=== PATIENT | male | born 1955 | race Caucasian/White ===

== ENCOUNTER 2023-06-25 07:44 | Outpatient (CLI) | payer MEDICARE, OTHER, SELFPAY ==
--- NOTE | ~2023-06-25 | US_ITS ---
EXAMINATION: US carotid duplex BI DATE: 06/25/2023 08:26 INDICATION: Bilateral carotid bruit TECHNIQUE: Grayscale, color Doppler, and pulsed Doppler images of the cervical carotid arteries were obtained. The degree of vessel stenosis is placed in one of the following categories: normal, <50%, 5 0-69%, >=70% but less than near-occlusion, near-occlusion, or total occlusion. Note that percent sten osis relative to normal distal artery lumen diameter is indirectly measured from velocity measurement s as described by Sandeep, et al. Radiology 2003; 229:340-346. COMPARISON: None. FINDINGS: RIGHT: The right common carotid artery (CCA) peak systolic velocity (PSV) is 74 cm/s. The right internal car otid artery (ICA) PSV is 57 cm/s. The right ICA end-diastolic velocity (EDV) is 22 cm/s. The right IC A/CCA PSV ratio is 0.8. Grayscale and color Doppler images yield an estimate of <50% diameter reducti on from plaque in the ICA. The external carotid artery (ECA) PSV is 52 cm/s. There is antegrade flow in the right vertebral artery. LEFT: The left CCA PSV is 68 cm/s. The left ICA PSV is 111 cm/s. The left ICA EDV is 40 cm/s. The left ICA/ CCA PSV ratio is 1.6. Grayscale and color Doppler images yield an estimate of <50% diameter reduction from plaque in the ICA. The ICA is tortuous distal to the bulb. The ECA PSV is 45 cm/s. There is ant egrade flow in the left vertebral artery. IMPRESSION: 1. <50% stenosis in the right internal carotid artery. 2. <50% stenosis in the left internal carotid artery. Reviewed, dictated and finalized at location A.
--- NOTE | 2023-06-25 07:58 | ECHO_ITS ---
Patient Info Name: Ozzie De La O Age: 67 years : 1955 Gender: Male Ht: 67 in Wt: 215 lbs BSA: 2.18 m2 HR: 65 bpm BP: 145 / 89 mmHg Heart Rhythm: Sinus Rhythm Technical Quality: Fair Exam Date: 06/25/2023 8:36 AM Exam Location: [facility] Patient Status: Outpatient Admit Date: 06/25/2023 Staff Ordering Physician: Tamara Rai MD Surveyor'S Assistant: Tomasa Madsen RDCS Attending Provider: Tamara Rai MD Referring Physician: Fredi AHMADI; Exam Type: CA echo doppler color flow Study Info Indications R01.1 - Cardiac murmur, unspecified Complete two-dimensional, color flow and Doppler transthoracic echocardiogram is performed. Summary 1. Complete two-dimensional, color flow and Doppler transthoracic echocardiogram is performed. 2. Left ventricular chamber dimension is normal. 3. Left ventricular systolic function is normal, estimated at 60-65%. 4. There is mild concentric increased left ventricular wall thickness. 5. The left ventricular diastolic function is grade I diastolic dysfunction. 6. E/e' 12 is mildly elevated. 7. There is mild aortic valve sclerosis. 8. There is mild aortic valve regurgitation. 9. There is mild mitral valve regurgitation. 10. There is trace tricuspid valve regurgitation. 11. No pulmonary hypertension, estimated pulmonary arterial systolic pressure is 23 mmHg. 12. There is trace pulmonic regurgitation. Left Ventricle E/e' 12 is mildly elevated. Left ventricular chamber dimension is normal. Left ventricular systolic function is normal, estimated at 60-65%. There is mild concentric increased left ventricular wall thickness. The left ventricular diastolic function is grade I diastolic dysfunction. Right Ventricle Right ventricular systolic function is normal and with normal TAPSE 3.3 cm. Right ventricular chamber dimension is normal. Left Atria Left atrial chamber dimension is normal. Right Atria Right atrial chamber dimension is normal. Aortic Valve The aortic valve is trileaflet. There is mild aortic valve sclerosis. There is no aortic valve stenosis. There is mild aortic valve regurgitation. Pulmonic Valve There is trace pulmonic regurgitation. Mitral Valve There is no mitral valve stenosis. There is mild mitral valve regurgitation. Tricuspid Valve There is trace tricuspid valve regurgitation. No pulmonary hypertension, estimated pulmonary arterial systolic pressure is 23 mmHg. Pericardium/Pleural There is no pericardial effusion. Inferior Vena Cava Normal inferior vena cava with >50% collapse upon inspiration consistent with normal right atrial pressure, 5 mmHg. Aorta The aortic root size at the sinus of Valsalva is normal. Left Ventricular Outflow Tract Name Value Normal LVOT 2D LVOT Diameter 2.0 cm LVOT Doppler LVOT Peak Velocity 102 cm/s LVOT Peak Gradient 4 mmHg LVOT Mean Gradient 3 mmHg LVOT VTI 24 cm LVOT VTI/AV VTI Ratio 0.6 LVOT Stroke Volume 78 ml Pulmonic Valve Name
== END 2023-06-25 07:45 | disposition home or self-care (01) ==
LOC: CHSIMG 07:46
PROVIDERS: PCP Internal Medicine; Visit Provider Internal Medicine
DX: R10.11 Right upper quadrant pain (principal); I65.23 Occlusion and stenosis of bilateral carotid arteries; I08.3 Combined rheumatic disorders of mitral, aortic and tricuspid valves
CPT/HCPCS: 93306; 93880

== ENCOUNTER 2025-01-06 12:18 | Outpatient (CLI) | payer MEDICARE, OTHER, SELFPAY ==
--- NOTE | ~2025-01-06 | US_ITS ---
EXAMINATION: US arterial ankle brachial ind DATE: 01/06/2025 12:48 INDICATION: Peripheral arterial disease. TECHNIQUE: Segmental pressures and plethysmographic and Doppler waveforms of the brachial and lower e xtremity arteries were obtained. COMPARISON: None. FINDINGS: Right and left brachial artery pressures of 145 mm Hg and 137 mm Hg, respectively, are concordant (no rmal difference <= 30 mmHg). The right ankle-brachial index (SHAHID) is 1.34 (normal >= 0.9-1.0). The right great toe-brachial index (TBI) is 0.86 (normal >= 0.65). Arterial Doppler waveforms are triphasic at the ankle. The left SHAHID is 1.24. The left TBI is 0.86. Arterial Doppler waveforms are triphasic at the ankle. IMPRESSION: 1. No significant arterial occlusive disease. Reviewed, dictated and finalized at location B.
--- OUTSIDE RECORDS SUMMARY | 2025-01-06 13:40 | XMS_ITS | Clinical Summary ---
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 Gender Identity Not on file Sexual Orientation Not on file Plan of Treatment Health Maintenance Due Date Last Done Comments Colorectal Cancer Screening Colonoscopy (10 Years) 1955 Hepatitis C 1971 DTaP, Tdap and Td Vaccines ( 1 - Tdap) 1972 Zoster Vaccines (1 of 2) 2003 Pneumococcal Vaccine: 65+ Ye ars (1 of 1 - PCV) 2018 COVID-19 Vaccine ( - 2023-2 5 season) 2024 Influenza Adult (#1) 2024 RSV Immunization or 60+ Years (1 - 1-dose 75+ series) 2028 Meningococcal B Vaccine Aged Out No l onger eligible based on patient's age to complete this topic Meningococcal Vaccine Aged Out No chaka yas eligible based on patient's age to complete this topic RSV Immunizations Under 20 Months Aged Out No longer eligible based on patient's age to complete this topic
== END 2025-01-06 12:19 | disposition home or self-care (01) ==
PROVIDERS: PCP Internal Medicine; Visit Provider Internal Medicine
DX: I73.9 Peripheral vascular disease, unspecified (principal)
CPT/HCPCS: 93922

== ENCOUNTER 2025-06-25 14:31 | Outpatient (CLI) | payer MEDICARE, OTHER, SELFPAY ==
--- NOTE | ~2025-06-25 | XR_ITS ---
XR lumbar spine 2-3V 06/25/2025 14:58 Indication: Back pain Procedure: 3 views lumbar spine Comparison: 09/21/2015 Findings: There has been progression of disc height loss at all lumbar levels. Vertebral body heights are maintained without acute fracture. There is multilevel facet hypertrophy. Prominent bridging osteophytes ventrally at L3-4 and L4-5. No evidence for spondylolisthesis. Sacral foramen are symmetric. Impression: 1: Progression of severe lumbar spondylosis. Reviewed, dictated and finalized at location O. Impression: 1: Progression of severe lumbar spondylosis.
--- OUTSIDE RECORDS SUMMARY | 2025-06-25 14:36 | XMS_ITS | Clinical Summary ---
Author Organization 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
== END 2025-06-25 14:32 | disposition home or self-care (01) ==
LOC: CHSIMG 14:34
PROVIDERS: PCP Internal Medicine; Visit Provider Internal Medicine
DX: M54.50 Low back pain, unspecified (principal); M43.06 Spondylolysis, lumbar region
CPT/HCPCS: 72100

== ENCOUNTER 2025-07-25 11:08 | Outpatient (CLI) | payer MEDICARE, OTHER, SELFPAY ==
--- NOTE | ~2025-07-25 | MR_ITS ---
EXAMINATION: MR lumbar spine wo con DATE: 07/25/2025 11:51 INDICATION: Chronic low back pain. Lumbar canal stenosis. TECHNIQUE: Magnetic resonance imaging (MRI) of the lumbar spine was performed without intravenous contrast. Sequences included sagittal T2-weighted FSE, sagittal T2-weighted FS FSE, sagittal T1-weighted FSE, and axial T2-weighted FSE. COMPARISON: Lumbar spine radiographs 06/25/2025 FINDINGS: There is 5 mm retrolisthesis of L1 on L2 and 3 mm retrolisthesis of L3 on L4 and L4-L5. There is mild chronic anterior wedging of T12 vertebral body. There are Schmorl's nodes at multiple levels. There is severely decreased disc height at L1-L2, L3-L4, L4-L5, and L5-S1. The distal spinal cord signal intensity is normal. The conus medullaris is at L1-L2. The following disc levels are specifically discussed: L1-L2: The disc is bulging and has an annular fissure. There is mild bilateral facet joint osteoarthritis. There is mild bilateral neural foraminal stenosis. There is mild central canal stenosis. L2-L3: The disc is bulging. There is severe bilateral facet joint osteoarthritis. There is mild bilateral neural foraminal stenosis. There is no central canal stenosis. L3-L4: The disc is bulging with superimposed central extrusion. There is moderate bilateral facet joint osteoarthritis. There is mild bilateral neural foraminal stenosis. There is mild central canal stenosis. L4-L5: The disc is bulging and has an annular fissure. There is moderate bilateral facet joint osteoarthritis. There is moderate right and mild left neural foraminal stenosis. There is mild central canal stenosis. L5-S1: The disc is bulging and has an annular fissure. There is severe bilateral facet joint osteoarthritis. There is mild right and moderate left neural foraminal stenosis. There is mild central canal stenosis. IMPRESSION: 1. Severe lumbar spondylosis. Reviewed, dictated and finalized at location E.
== END 2025-07-25 11:09 | disposition home or self-care (01) ==
LOC: CHSIMG 11:13
PROVIDERS: PCP Internal Medicine; Visit Provider Internal Medicine
DX: M54.50 Low back pain, unspecified (principal); M43.06 Spondylolysis, lumbar region
CPT/HCPCS: 72148

== ENCOUNTER 2025-09-02 13:51 | Outpatient (RCR) | payer MEDICARE, SELFPAY ==
--- NOTE | 2025-09-02 14:52 | OPREHPOC ---
Outpatient Therapy Plan of Care This is a Multidisciplinary Plan of Care that may contain components documented by all disciplines (PT, OT, and ST.) PT Problem 1 PT Problem #1 Knowledge Deficit PT Goal 1 Goal / Goal Update Independent and compliant with HEP. Target Visit 2 PT Problem 2 PT Problem #2 Impaired Strength PT Goal 1 Goal / Goal Update Pt to improve hip and knee strength to 5/5 without pain. Pt to improve lower abdominal strength to 3+/5 without pain. Target Visit 12 PT Problem 3 PT Problem #3 Impaired Range of Motion PT Goal 1 Goal / Goal Update Pt to achieve full active lumbar flexion and lateral flexion without pain/stiffness. Target Visit 12 PT Problem 4 PT Problem #4 Impaired Functional Mobility PT Goal 1 Goal / Goal Update Pt to report 20% reduction in perceived disability on Oswestry. Pt to report being able to work in his garden and perform household tasks with reduced feelings of low back stiffness. Target Visit 12 PT Problem 5 PT Problem #5 Impaired Flexibility PT Goal 1 Goal / Goal Update Pt to achieve mild tightness of bilat piriformis. Pt to reach 30 deg bilat hamstring length. Target Visit 12
--- NOTE | 2025-09-02 14:52 | PTOPEVAL1 ---
Assessment and note entered by Marii Quinn, PT Evaluation Information Assessment Status Evaluation ICD-10 Condition Codes (PT) Radiculopathy, lumbar region M54.16 Other ICD-10 Condition Codes ( M47.816, M54.59 PT) Onset 09/01/23 Subjective Information Pt reports his back started hurting a couple years ago and he went to the chiropractor a lot, which helped for a short time but that it didn't help much overall. He states he has not been back since the summer. He has been to pain management and they recommended he try PT and that injections are an option of therapy doesn't work. He reports he has a constant ache in his lower back but that his main concern is the stiffness he feels. He reports he likes to work in his garden and has trouble bending forward. He reports he does have more back pain when he's standing vs. sitting. He has tried ibuprofen but overall tries to avoid any pain medication. He reports his pain is primarily localized to his lower but that it can occasionally go down his legs if he's doing heavy lifting. Lumbar spine MRI from June 2025 shows severe spondylosis consisting of retrolisthesis, disc bulging with extrusions, forminal and central canal stenosis. Reported Pain Level Pain Score 3: Self Report Assessment PT Clinical Summary Mr. De La O is a 70 yo male presenting to skilled PT evaluation for lumbar radiculopathy and spondylosis. He demonstrates deficits in hip and abdominal strength as well as lumbar AROM. His deficits make it difficult for him to perform functional and recreational tasks such as working in his garden. Skilled PT intervention is indicated to reduce pain, improve mobility/ flexibility and strength to return to normal activities with more ease. Plan of Care Interventions Electrical Stimulation,Gait Training,Hot Pack/Cold Pack,Manual Therapy,Mechanical Traction,Neuro Re- education,Patient/Caregiver Education,Therapeutic Activities,Therapeutic Exercise,Self-Care/Home Management PT Services Indicated Yes Treatment Frequency and 2x/week for 12 visits Duration These treatments will address the objective and functional deficits as defined above. The patient will be advanced safely and appropriately in order for the patient to progress towards his/her prior level of function. Additional exercises will be introduced and as well as a comprehensive home exercise program upon discharge, if needed, ?to ensure carryover of functional gains achieved in the clinic. This treatment plan has been reviewed and agreement upon by the patient.
--- NOTE | 2025-10-06 10:15 | PTOPPROG ---
Assessment and note entered by Luz Che DPT Evaluation Information Assessment Status Progress ICD-10 Condition Codes (PT) Radiculopathy, lumbar region M54.16 Other ICD-10 Condition Codes ( M47.816, M54.59 PT) Onset 09/01/23 Subjective Information Patient reports that he has noticed some improvement in range of motion. He reports that bending continues to be his most difficult task. He reports pain is low but stiffness is what limits him. Assessment PT Clinical Summary Mr. De La O has attended 10 visits of skilled PT with progress towards goals. He demonstrates improved lumbar ROM and increased in hip strength. He continues to report difficulty with bending forward for house hold tasks but reports pain is minimal. He would benefit from continued skilled PT to address remaining impairments and return to PLOF. Plan of Care Interventions Electrical Stimulation,Gait Training,Hot Pack/Cold Pack,Manual Therapy,Mechanical Traction,Neuro Re- education,Patient/Caregiver Education,Therapeutic Activities,Therapeutic Exercise,Self-Care/Home Management PT Services Indicated Yes Treatment Frequency and continue with remaining 2 visits Duration These treatments will address the objective and functional deficits as defined above. The patient will be advanced safely and appropriately in order for the patient to progress towards his/her prior level of function. Additional exercises will be introduced and as well as a comprehensive home exercise program upon discharge, if needed, ?to ensure carryover of functional gains achieved in the clinic. This treatment plan has been reviewed and agreement upon by the patient.
--- NOTE | 2025-10-14 14:37 | OPREHPOC ---
Outpatient Therapy Plan of Care This is a Multidisciplinary Plan of Care that may contain components documented by all disciplines (PT, OT, and ST.) PT Problem 1 PT Problem #1 Knowledge Deficit PT Goal 1 Goal / Goal Update Independent and compliant with HEP. Target Visit 2 Progress Met PT Problem 2 PT Problem #2 Impaired Strength PT Goal 1 Goal / Goal Update Pt to improve hip and knee strength to 5/5 without pain. -met Pt to improve lower abdominal strength to 3+/5 without pain. -met Target Visit 12 Progress Met PT Problem 3 PT Problem #3 Impaired Range of Motion PT Goal 1 Goal / Goal Update Pt to achieve full active lumbar flexion and lateral flexion without pain/stiffness. -met for flexion, progress towards on lateral flexion Target Visit 12 Progress Partially Met PT Problem 4 PT Problem #4 Impaired Functional Mobility PT Goal 1 Goal / Goal Update Pt to report 20% reduction in perceived disability on Oswestry. -met Pt to report being able to work in his garden and perform household tasks with reduced feelings of low back stiffness. -met Target Visit 12 Progress Met PT Problem 5 PT Problem #5 Impaired Flexibility PT Goal 1 Goal / Goal Update Pt to achieve mild tightness of bilat piriformis. -met Pt to reach 30 deg bilat hamstring length. -met Target Visit 12 Progress Met
--- NOTE | 2025-10-14 14:38 | PTOPDC ---
Assessment and note entered by Ani Reyes, PT Evaluation Information Assessment Status Progress ICD-10 Condition Codes (PT) Radiculopathy, lumbar region M54.16 Other ICD-10 Condition Codes ( M47.816, M54.59 PT) Onset 09/01/23 Subjective Information Ozzie De La O reports he is moving better and he is able to perform necessary daily activities with minimal pain. He does still get occasional pain but it is managed with stretching. He saw pain management earlier this week and they recommend he keep up with his therapy exercises since it has helped his pain. They did not recommend any medication or injections at this time. He will see pain management again in 6 months. Reported Pain Level Pain Score 2: Self Report Assessment PT Clinical Summary Ozzie De La O has completed 12 skilled PT visits for chronic low back pain with radiculopathy. He no longer has pain in the leg and his lower back pain has decreased and is intermittent and less intense now. He reports improved mobility and ability to perform necessary daily tasks. He objectively demonstrates improved lumbar AROM, improved core and hip strength, and improved gait. He has met all goals and will be discharged to an independent [facility]. Plan of Care PT Services Indicated No
--- NOTE | 2025-10-14 14:38 | PTOPDC ---
Assessment and note entered by Ani Reyes, PT Evaluation Information Assessment Status Discharge ICD-10 Condition Codes (PT) Radiculopathy, lumbar region M54.16 Other ICD-10 Condition Codes ( M47.816, M54.59 PT) Onset 09/01/23 Subjective Information Ozzie De La O reports he is moving better and he is able to perform necessary daily activities with minimal pain. He does still get occasional pain but it is managed with stretching. He saw pain management earlier this week and they recommend he keep up with his therapy exercises since it has helped his pain. They did not recommend any medication or injections at this time. He will see pain management again in 6 months. Reported Pain Level Pain Score 2: Self Report Assessment PT Clinical Summary Ozzie De La O has completed 12 skilled PT visits for chronic low back pain with radiculopathy. He no longer has pain in the leg and his lower back pain has decreased and is intermittent and less intense now. He reports improved mobility and ability to perform necessary daily tasks. He objectively demonstrates improved lumbar AROM, improved core and hip strength, and improved gait. He has met all goals and will be discharged to an independent [facility]. Plan of Care PT Services Indicated No
== END 2025-10-14 20:00 | disposition home or self-care (01) ==
LOC: CHSPT 13:51
PROVIDERS: Visit Provider Nurse Practitioner Family
DX: M54.16 Radiculopathy, lumbar region (principal); M47.816 Spondylosis without myelopathy or radiculopathy, lumbar region; M54.59 Other low back pain
CPT/HCPCS: 97014; 97110; 97112; 97161; G0283